=== PATIENT | male | born 1945 | race African-American/Black ===

== ENCOUNTER 2016-12-27 20:21 | Inpatient (IN) | payer MEDICARE ==
[~2016-12-27] VITALS: Ht 177.8 cm; Wt 105.7 kg
--- NOTE | 2016-12-27 20:23 | NUR ---
PT [facility] FROM [facility] TO ER BED 10. PER REPORT, PT WAS NOTED TO BE SHORT OF BREATH, TACHYPNEIC. PT OSKAR SOB TUNNEL MINER. GOWNED AND PLACED ON MONITOR. SATTING 94% ON RA. PLACED ON O2@2L. STABLE VITALS. AWAITING MD DONIS.
--- NOTE | 2016-12-27 20:25 | NUR ---
DR BOX AT BEDSIDE FOR EVAL.
--- NOTE | 2016-12-27 20:43 | NUR ---
IV LINE STARTED BLOOD DRAWN AND SENT TO LAB.
--- NOTE | 2016-12-27 20:53 | NUR ---
RADIOLOGY AT BEDSIDE FOR CHEST XRAY.
[2016-12-27 20:56] LABS: BASOPHILS # (AUTO) 0.3 /CMM (0.0-0.2); BASOPHILS % (AUTO) 3.5 % (0.0-2.0); EOSINOPHILS # (AUTO) 0.4 /CMM (0.0-0.7); EOSINOPHILS % (AUTO) 4.5 % (0.0-6.0); HEMATOCRIT 39 % (39-51); HEMOGLOBIN 12.9 g/dL (13.5-17.5); LYMPHOCYTES % (AUTO) 24.4 % (20.0-44.0); MEAN CORPUSCULAR HEMOGLOBIN 30 PG (26.0-33.0); MEAN CORPUSCULAR HGB CONC 33 g/dl (31.0-36.0); MEAN CORPUSCULAR VOLUME 92 fL (80-96); MONOCYTES # (AUTO) 0.5 /CMM (0.1-1.30); MONOCYTES % (AUTO) 6.5 % (2.0-12.0); NEUTROPHILS % (AUTO) 61.1 % (43.0-81.0); PLATELET COUNT (AUTO) 197 /CMM (150-450); RDW COEFFICIENT OF VARIATION 13.4 (11.5-15.0); WHITE BLOOD COUNT (AUTO) 8.2 K/uL (4.3-11.0)
[2016-12-27 21:00] LABS: CARBON DIOXIDE 29 mmol/L (21-32); CHLORIDE 107 mmol/L (98-107); CREATININE 1.4 mg/dL (0.6-1.3); GLUCOSE 188 mg/dL (74-106); POTASSIUM 4.3 mmol/L (3.5-5.1); SODIUM SERUM 141 mmol/L (136-145); UREA NITROGEN, BLOOD 23 mg/dL (7-18)
[2016-12-27 21:06] LABS: PROTHROMBIN TIME 10.4 SECS (9.5-12.7)
[2016-12-27 21:08] LABS: TROPONIN I 0.031 ng/mL (0.00-0.056)
[2016-12-27 21:11] LABS: ALANINE AMINOTRANSFERASE 24 U/L (12-78); ALBUMIN 3.1 g/dL (3.4-5.0); ALKALINE PHOSPHATASE 131 U/L (46-116); ASPARTATE AMINOTRANSFERASE 16 U/L (15-37); BILIRUBIN,DIRECT 0.1 mg/dL (0.0-0.2); BILIRUBIN,TOTAL 0.3 mg/dL (0.2-1.0); TOTAL PROTEIN, SERUM 7.3 g/dL (6.4-8.2)
[2016-12-27] MEDS ORDERED: PIPERACILLIN /TAZOBACTAM 3.375 G in IV D5W 50 ML IV ONE (21:30)
[2016-12-27] MEDS ORDERED: AZITHROMYCIN 500 MG in IV D5W 250 ML IV ONE (21:30)
[2016-12-27] MEDS ORDERED: AZITHROMYCIN 500 MG VIAL ONE (21:32)
[2016-12-27] MEDS ORDERED: PIPERACILLIN /TAZOBACTAM 3.375 G VIAL IV ONE (21:32)
--- NOTE | 2016-12-27 22:39 | NUR ---
REPORT GIVEN TO PATRICIA. PT AWAITING TRANFER TO FLOOR.
--- NOTE | 2016-12-27 22:46 | NUR ---
REPORT RECEIVED FROM ER NURSE
[2016-12-27 23:00] VITALS: BP 119/79
[2016-12-27] MEDS ORDERED: MAGNESIUM HYDROXIDE 30 ML UDC PO PRN (23:00)
[2016-12-27] MEDS ORDERED: HYDROCODONE/APAP 5/325MG 1 EACH TABLET PO PRN (23:00)
[2016-12-27] MEDS ORDERED: Z GUARD REMEDY 2 OZ OINT TP PRN (23:00)
[2016-12-27] MEDS ORDERED: ACETAMINOPHEN 325 MG TABLET PO PRN (23:00)
[2016-12-27] MEDS ORDERED: ONDANSETRON HCL/PF 4 MG/2 ML VIAL IVP PRN (23:00)
[2016-12-27] MEDS ORDERED: MAG HYDROX/AL HYDROX/SIMETH 30 ML UDC PO PRN (23:00)
--- NOTE | 2016-12-27 23:00 | NUR ---
CERTIFIED REGISTERED DENTAL ASSISTANT INITIAL NOTES RECEIVED PATIENT VIA LES AWAKE A/OX2, DAUGHTER AT BEDSIDE. PATIENT DENIES PAIN OR DISCOMFORT. PATIENT DENIES SOB, ON 2LPMO2 VIA NC SPO2 96%. ON TELE MONITOR SR 84. WITH LW 18G PATENT AND INTACT, ZITHROMAX RUNNING. ORIENTED PATIENT TO ROOM AND CALL LIGHT SYSTEM PATIENT VERBALIZED UNDERSTANDING. SKIN ASSESSMENT DONE. PER DAUGHTER PATIENT NEEDS ONE ON ONE SUPERVISION WHEN EATING, PATIENT ON THICKENED LIQUIDS, AND ASPIRATION PRECAUTIONS. HOB ELEVATED. SIDE RAILS UP AND LOCKED. BED KEPT AT LOWEST POSITION. CALL LIGHT KEPT WITHIN EASY REACH. WILL CONTINUE TO MONITOR.
--- NOTE | 2016-12-27 23:28 | NUR ---
CLARIFIED ABG ORDERS WITH GARCIA, PATIENT IN NO RESPIRATORY DISTRESS, SPO2 96% ON 2LPM. RELAYED D-DIMER RESULT, WITH ORDERS FOR STAT NM PULMONARY PERFUSION WITH VENT. WILL GET CONSENT FROM DAUGHTER.
[2016-12-27 23:55] LABS: ABG BASE EXCESS -1.9 mmol/L; ABG OXYGEN SATURATION 95.8 % (92.0-98.5); ABG PCO2 39.7 mmHg (35.0-45.0); ABG PO2 87.2 mmHg (75.0-100.0); AaDO2 65.6 mmHg; COHb 0.4 % (0.5-1.5); MetHb 0.4 % (0.0-1.5); SITE, ABG Right Radial; VENT MODE, BG Nasal Cannula
[2016-12-28] VITALS: BP 119/79
[2016-12-28] MEDS ORDERED: CRAN3875 PO (00:27)
[2016-12-28] MEDS ORDERED: ASPI325T2 PO (00:27)
[2016-12-28] MEDS ORDERED: ERGO400T7 PO (00:27)
[2016-12-28] MEDS ORDERED: INSU3INS6 SUBCUT (00:27)
[2016-12-28] MEDS ORDERED: ATOR20TA PO (00:27)
[2016-12-28] MEDS ORDERED: SENN8.6T6 PO (00:27)
[2016-12-28] MEDS ORDERED: BRIM5DRO3 EACHEYE (00:27)
[2016-12-28] MEDS ORDERED: MULT-1119 PO (00:27)
[2016-12-28] MEDS ORDERED: MAGN400O6 PO (00:27)
[2016-12-28] MEDS ORDERED: BISA10SU61 RC (00:27)
[2016-12-28] MEDS ORDERED: DOCU-170 PO (00:27)
[2016-12-28] MEDS ORDERED: AMAN100T PO (00:27)
[2016-12-28] MEDS ORDERED: NA P133E RC (00:27)
[2016-12-28] MEDS ORDERED: ACET-73 PO (00:27)
[2016-12-28] MEDS ORDERED: DONE5TAB34 PO (00:27)
[2016-12-28] MEDS ORDERED: INSU100V11 SQ (00:27)
[2016-12-28] MEDS ORDERED: ACET-868 PO (00:27)
[2016-12-28] MEDS ORDERED: GLUC1KIT IM (00:27)
[2016-12-28] MEDS ORDERED: VENL75TA4 PO (00:27)
[2016-12-28] MEDS ORDERED: LISI-603 PO (00:27)
--- NOTE | 2016-12-28 01:25 | NUR ---
patient left for NM for VQ scan
[2016-12-28] MEDS ORDERED: BISACODYL SUPP (10 MG) 10 MG/SUPP.RECT SUPP.RECT RC SCH (02:00)
[2016-12-28] MEDS ORDERED: DEXTROSE 50%-WATER 50 ML DISP.SYRIN IV PRN (02:00)
[2016-12-28] MEDS ORDERED: NA PHOS,M-B/NA PHOS,DI-BA 1 EA ENEMA RC SCH (02:00)
--- NOTE | 2016-12-28 02:44 | NUR ---
PATIENT RETURNED FROM [place] SCAN
[2016-12-28 03:04] VITALS: BP 152/85
--- NOTE | 2016-12-28 03:49 | NUR ---
CALLED RADIOLOGY TO F/U ON VQ SCAN RESULT. PER TECH, WILL BE READ SOON
[2016-12-28 04:00] VITALS: BP 150/82
--- NOTE | 2016-12-28 04:16 | NUR ---
FINANCIAL OPERATIONS CLERK NOTES RELAYED STAT NM PULMONARY PERFUSION WITH VENT RESULTS AND ABG RESULTS WITH NO NEW ORDERS. HE WILL PLACE DVT PPX ORDER FOR THE PATIENT
[2016-12-28] MEDS ORDERED: HEPARIN SODIUM, PORCINE 5000 UNITS/1 ML VIAL SQ SCH (04:30)
[2016-12-28] MEDS ORDERED: HEPARIN SODIUM, PORCINE 5000 UNITS/1 ML VIAL ONE (04:37)
--- NOTE | 2016-12-28 07:27 | NUR ---
RN NOTES RECEIVED PT FROM THRESHING MACHINE OPERATOR IN STABLE CONDITION, ON 2L NC NO SOB OR DISTRESS NOTED AT THIS TIME. SR ON THE TELE MONITOR HR 76. LW 18 GAUGE IV SITE DRY AND INTACT. BED LOCKED AND IN LOWEST POSITION, CALL LIGHT WITHIN REACH, WILL CONT TO MONITOR.
--- NOTE | 2016-12-28 07:31 | NUR ---
SLITTER CUT OFF OPERATOR CLOSING NOTES NO SIGNIFICANT CHANGES OVERNIGHT. ALL NEEDS ANTICIPATED AND MET. NO SOB. SPO2 95% ON [id number]. HOB KEPT ELEVATED. KEPT CLEAN AND DRY . TURNED AND REPOSITIONED Q2 AND PRN. SIDE RAILS UP AND LOCKED. ASPIRATION PRECAUTIONS OBSERVED. BED KEPT AT LOWEST POSITION. CALL LIGHT KEPT WITHIN EASY REACH. CONTINUITY OF CARE ENDORSED TO AM NURSE.
[2016-12-28 07:37] LABS: BASOPHILS % (AUTO) 0.5 % (0.0-2.0); EOSINOPHILS # (AUTO) 0.4 /CMM (0.0-0.7); EOSINOPHILS % (AUTO) 4.9 % (0.0-6.0); HEMATOCRIT 39 % (39-51); HEMOGLOBIN 12.6 g/dL (13.5-17.5); LYMPHOCYTES # (AUTO) 2.1 /CMM (0.8-4.8); MEAN CORPUSCULAR HEMOGLOBIN 30 PG (26.0-33.0); MEAN CORPUSCULAR HGB CONC 33 g/dl (31.0-36.0); MEAN CORPUSCULAR VOLUME 92 fL (80-96); MONOCYTES # (AUTO) 0.4 /CMM (0.1-1.30); MONOCYTES % (AUTO) 6.1 % (2.0-12.0); NEUTROPHILS # (AUTO) 4.3 /CMM (1.8-8.9); NEUTROPHILS % (AUTO) 59.5 % (43.0-81.0); PLATELET COUNT (AUTO) 187 /CMM (150-450); RDW COEFFICIENT OF VARIATION 14.5 (11.5-15.0); RED BLOOD CELL COUNT(AUTO) 4.22 MIL/uL (4.5-6.0); WHITE BLOOD COUNT (AUTO) 7.3 K/uL (4.3-11.0)
[2016-12-28 07:50] LABS: CALCIUM, SERUM 8.6 mg/dL (8.5-10.1); CARBON DIOXIDE 25 mmol/L (21-32); CHLORIDE 108 mmol/L (98-107); CREATININE 1.2 mg/dL (0.6-1.3); GLUCOSE 212 mg/dL (74-106); PHOSPHORUS 3.7 mg/dL (2.5-4.9); POTASSIUM 4.1 mmol/L (3.5-5.1); SODIUM SERUM 142 mmol/L (136-145); UREA NITROGEN, BLOOD 23 mg/dL (7-18)
[2016-12-28 07:58] LABS: TROPONIN I 0.027 ng/mL (0.00-0.056)
[2016-12-28 08:00] VITALS: BP 145/84
[2016-12-28] MEDS: DONEPEZIL 5 MG TABLET PO SCH (08:35)
[2016-12-28] MEDS: LISINOPRIL (20MG) 20 MG TABLET PO SCH (08:35)
[2016-12-28] MEDS: SENNOSIDES 8.6 MG TABLET PO SCH (08:35)
[2016-12-28] MEDS: BLOOD SUGAR DIAGNOSTIC 1 EACH STRIP IN SCH ×4 (08:35→22:43)
[2016-12-28] MEDS: DOCUSATE SODIUM 100 MG CAPSULE PO SCH (08:36)
[2016-12-28] MEDS: ASPIRIN 325 MG TABLET PO SCH (08:36)
[2016-12-28] MEDS: MULTIVIT, IRON, MIN NO. 8, FA 1 TAB PO SCH (08:36)
[2016-12-28 08:42] LABS: APPEARANCE,URINE CLEAR (CLEAR); BILIRUBIN,URINE NEGATIVE (NEGATIVE); BLOOD, URINE TRACE-INTA Ery/uL (NEGATIVE); COLOR,URINE YELLOW (YELLOW); KETONES,URINE NEGATIVE (NEGATIVE); LEUKOCYTE ESTERASE ,URINE NEGATIVE (NEGATIVE); NITRITE, URINE NEGATIVE (NEGATIVE); PROTEIN,URINE 2+ mg/dl (NEGATIVE); UGLUCOSE NEGATIVE (NEGATIVE); UROBILINOGEN,URINE 0.2 EU/dL (0.2)
[2016-12-28 08:48] LABS: BACTERIA,URINE None seen /HPF (None Seen); RBC,URINE 0-2 /HPF (0-2); SQUAMOUS EPITHELIAL CELL,UR 0-2 /HPF (None Seen); WBC,URINE 0-2 /HPF (0-3)
[2016-12-28] MEDS ORDERED: Medication Not On Formulary EA (Cran/Vitc/Mannose/Inulin/Brom (Uti-Stat Liquid) 3,875 MG PO SCH (09:00)
[2016-12-28] MEDS: BRIMONIDINE TARTRATE OPHT SOLN 5 ML BOTTLE OP SCH ×2 (09:16→22:34)
[2016-12-28] MEDS: AMANTADINE SUSP 50 MG/5 ML UDC PO SCH ×2 (09:16→16:25)
[2016-12-28] MEDS: INSULIN DETEMIR 100 UNIT/ML CARTRIDGE SQ SCH ×2 (09:18→22:41)
[2016-12-28] MEDS: INSULIN REGULAR, HUMAN 100 UNIT/ML 3 ML VIAL SQ PRN ×4 (09:20→22:48)
--- NOTE | 2016-12-28 10:02 | NUR ---
RN NOTES PER PHARMACY HERPARIN WAS GIVEN AT 5AM BUT REMAINED PINK ON EMAR. PER PHARMACY, WRITE "NOT ADMINISTERED" EVEN THOUGH IT WAS GIVEN BY ART SALES CONSULTANT.
[2016-12-28 10:49] LABS: CHOLESTEROL 111 mg/dL (<200); HDL CHOLESTEROL 46 mg/dL (40-60); LDL 46 mg/dL (0-99); THYROID STIMULATING HORMONE 2.252 uIU/mL (0.358-3.74); TRIGLYCERIDES 110 mg/dL (30-150)
--- NOTE | 2016-12-28 11:56 | NUR ---
RN NOTES CLOT SEEN IN THE L LEG FROM DOPPLER, DR CASTILLO AWARE. LOVENOX ORDERED.
[2016-12-28 16:00] VITALS: BP 135/76
[2016-12-28] MEDS ORDERED: ERGOCALCIFEROL (VITAMIN D 2) 50,000 UNIT CAPSULE PO SCH (17:30)
--- NOTE | 2016-12-28 18:16 | NUR ---
RN NOTES PT RESTING IN BED NO SOB OR DISTRESS NOTED AT THIS TIME. TELEPHONE CONSENT RECEIVED FROM DAUGHTER MIHIR WITH DR TOBIAS FOR THORACENTESIS TOMORROW AM. ALL NEEDS MET, NO SIGNIFICANT CHANGES THROUGHOUT THE SHIFT, REMAINED IN STABLE CONDITION. BED LOCKED AND IN LOWEST POSITION, CALL LIGHT WITHIN REACH, SIDE RAILS UPX3, WILL ENDORSE TO ONCOMING SHIFT.
[2016-12-28] MEDS ORDERED: ENOXAPARIN SODIUM 60 MG/0.6 ML DISP.SYRIN SQ ONE (18:30)
[2016-12-28 20:00] VITALS: BP 130/76
--- NOTE | 2016-12-28 20:00 | NUR ---
RN INITIAL NOTES; PT ON THE BED WITHOUT ANY DISTRESS, PT IS ALERT/ORIENTED X 2 ,CONFUSE . BREATHING EVEN AND UNLABORED ON 2 LPM VIA NC, LW 18 G PERIPHERAL IV INTACT AND PATENT . INCONTINENT TO BOWEL/BLADDER . BED IN THE LOWEST/LOCKED POSITION . SAFETY MEASURES APPLIED . WILL TURN AND REPOSITION Q2H AND NEEDED. PT WILL BE NPO POST MIDNIGHT FOR THORACENTESIS TOMORROW. WILL CONTINUE TO MONITOR .
[2016-12-28] MEDS ORDERED: ENOXAPARIN SODIUM 60 MG/0.6 ML DISP.SYRIN SQ SCH (21:00)
[2016-12-28] MEDS: HEPARIN SODIUM, PORCINE 5000 UNITS/1 ML VIAL SQ SCH (21:00)
[2016-12-28] MEDS: ATORVASTATIN 10 MG TABLET PO SCH (22:33)
--- NOTE | 2016-12-28 22:36 | NUR ---
RN NOTE; NON ADMIN HEPARIN; PT IS SCHEDULED FOR THORACENTESIS TOMORROW , HEPARIN 5000 UNITS SQ HELD AT THIS TIME . AIYANA ARAYA MADE AWARE . WILL CONTINUE TO MONITOR.
--- NOTE | 2016-12-28 22:49 | NUR ---
RN NOTE; REGULAR INSULIN HELD FOR BS 250 MG/DL DUE TO NPO STATUS POST MIDNIGHT .
[2016-12-29 04:00] VITALS: BP 148/87
--- NOTE | 2016-12-29 06:48 | NUR ---
RN EOS NOTE; PT REMAINED STABLE DURING THE SHIFT, NO ANY DISTRESS NOTED. G TUBE FEEDING TOLERATED WELL. TURNED AND REPOSITIONED Q2H AND NEEDED . TOTAL CARE RENDERED . ON NPO STATUS FOR PROCEDURE THORACENTESIS . WILL ENDORSE TO NEXT SHIFT RN FOR CONTINUITY OF CARE. Addendum: 12/29/16 at 0649 by WILL PELAEZ RN PLS AVOID THIS NOTE, WAS FOR DIFFERENT PATIENT.
--- NOTE | 2016-12-29 06:49 | NUR ---
RN EOS NOTE; PT REMAINED STABLE DURING THE SHIFT, NO ANY DISTRESS NOTED. TURNED AND REPOSITIONED Q2H AND NEEDED . TOTAL CARE RENDERED . ON NPO STATUS FOR PROCEDURE THORACENTESIS . WILL ENDORSE TO NEXT SHIFT RN FOR CONTINUITY OF CARE.
--- NOTE | 2016-12-29 07:23 | NUR ---
RN NOTES RECEIVED PT FROM FORGE PRESS OPERATOR IN STABLE CONDITION, RESTING IN BED. A&OX2, ON 2L NC, NO SOB OR DISTRESS NOTED. LW 18G IV SITE DRY AND INTACT NO IVF RUNNING AT THIS TIME. BED LOCKED AND IN LOWEST POSITION, CALL LIGHT WITHIN REACH, SIDE RAILS UPX3, WILL CONT TO MONITOR.
[2016-12-29] MEDS: BLOOD SUGAR DIAGNOSTIC 1 EACH STRIP IN SCH ×4 (07:30→22:28)
[2016-12-29 08:00] VITALS: BP 147/82
[2016-12-29] MEDS: HEPARIN SODIUM, PORCINE 5000 UNITS/1 ML VIAL SQ SCH (09:00)
--- NOTE | 2016-12-29 09:19 | NUR ---
RN NOTES AM MEDS AND INSULIN HELD DUE TO THORACENTESIS TO BE DONE. HEPARIN HELD. WILL CONFIRM WITH RADIOLOGIST IF PT NEEDS TO BE NPO.
--- NOTE | 2016-12-29 10:15 | NUR ---
RN NOTES PER RADIOLOGIST PT DOES NOT NEED TO BE NPO. AM MEDS WILL BE GIVEN AFTER PT RETURNS FROM CT SCAN.
[2016-12-29] MEDS: BRIMONIDINE TARTRATE OPHT SOLN 5 ML BOTTLE OP SCH ×2 (10:43→21:00)
[2016-12-29] MEDS: SENNOSIDES 8.6 MG TABLET PO SCH (10:44)
[2016-12-29] MEDS: ASPIRIN 325 MG TABLET PO SCH (10:44)
[2016-12-29] MEDS: DOCUSATE SODIUM 100 MG CAPSULE PO SCH (10:45)
[2016-12-29] MEDS: MULTIVIT, IRON, MIN NO. 8, FA 1 TAB PO SCH (10:45)
[2016-12-29] MEDS: LISINOPRIL (20MG) 20 MG TABLET PO SCH (10:45)
[2016-12-29] MEDS: DONEPEZIL 5 MG TABLET PO SCH (10:45)
[2016-12-29] MEDS: AMANTADINE SUSP 50 MG/5 ML UDC PO SCH ×2 (10:48→16:47)
[2016-12-29] MEDS: VENLAFAXINE 25 MG TABLET PO SCH (10:48)
[2016-12-29] MEDS: INSULIN DETEMIR 100 UNIT/ML CARTRIDGE SQ SCH ×2 (10:49→22:22)
[2016-12-29] MEDS: INSULIN REGULAR, HUMAN 100 UNIT/ML 3 ML VIAL SQ PRN ×4 (10:51→22:23)
--- NOTE | 2016-12-29 11:46 | NUR ---
RN NOTES THORACENTESIS NOT DONE. PER RADIOLOGIST, NOT ENOUGH FLUID IN THE LUNG,
[2016-12-29 12:00] LABS: BASOPHILS % (AUTO) 0.4 % (0.0-2.0); EOSINOPHILS # (AUTO) 0.3 /CMM (0.0-0.7); EOSINOPHILS % (AUTO) 4.7 % (0.0-6.0); HEMATOCRIT 41 % (39-51); HEMOGLOBIN 13.3 g/dL (13.5-17.5); LYMPHOCYTES % (AUTO) 27.3 % (20.0-44.0); MEAN CORPUSCULAR HEMOGLOBIN 30 PG (26.0-33.0); MEAN CORPUSCULAR HGB CONC 33 g/dl (31.0-36.0); MEAN CORPUSCULAR VOLUME 92 fL (80-96); MONOCYTES # (AUTO) 0.5 /CMM (0.1-1.30); MONOCYTES % (AUTO) 7.3 % (2.0-12.0); NEUTROPHILS # (AUTO) 4.3 /CMM (1.8-8.9); NEUTROPHILS % (AUTO) 60.3 % (43.0-81.0); PLATELET COUNT (AUTO) 201 /CMM (150-450); RDW COEFFICIENT OF VARIATION 14.3 (11.5-15.0); RED BLOOD CELL COUNT(AUTO) 4.41 MIL/uL (4.5-6.0); WHITE BLOOD COUNT (AUTO) 7.2 K/uL (4.3-11.0)
[2016-12-29 12:29] LABS: IRON, SERUM 47 ug/dl (50-175); TOTAL IRON BINDING CAPACITY 236 ug/dl (250-450)
[2016-12-29 12:30] LABS: CALCIUM, SERUM 9.2 mg/dL (8.5-10.1); CARBON DIOXIDE 32 mmol/L (21-32); CHLORIDE 107 mmol/L (98-107); CREATININE 1.1 mg/dL (0.6-1.3); GLUCOSE 297 mg/dL (74-106); MAGNESIUM 1.8 mg/dL (1.8-2.4); PHOSPHORUS 3.3 mg/dL (2.5-4.9); POTASSIUM 4.2 mmol/L (3.5-5.1); SODIUM SERUM 144 mmol/L (136-145); UREA NITROGEN, BLOOD 22 mg/dL (7-18)
[2016-12-29 13:09] LABS: INR 1.02 (0.87-1.13); PROTHROMBIN TIME 10.6 SECS (9.5-12.7)
[2016-12-29 13:29] LABS: FERRITIN 175 ng/mL (8-388); FREE PSA 0.44 ng/mL (0.00-45); PROSTATE SPECIFIC ANTIGEN SCR 4.01 ng/mL (0.00-4.00)
[2016-12-29 16:00] VITALS: BP 148/77
--- NOTE | 2016-12-29 18:18 | NUR ---
RN NOTES PT RESTING IN BED WITH DAUGHTER AT BEDSIDE. ON NC NO SOB OR DISTRESS NOTED. NO SIGNIFICANT CHANGES THROUGHOUT THE SHIFT.ALL NEEDS MET, KEPT COMFORTABLE. PT REMOVED IV, NEW IV SITE STARTED L FA 22 GAUGE. BED LOCKED AND IN LOWEST POSITION, SIDE RAILS UPX3, WILL ENDORSE TO ONCOMING SHIFT.
[2016-12-29 20:00] VITALS: BP 153/86
--- NOTE | 2016-12-29 20:00 | NUR ---
MS RN NOTES RECEIVED PTS ON BED AWAKE AND RESPONSIVE, ALERT X2 WITH CONFUSION, V/S STABLE AFEBRILE, NO SOB NO DISTRESS , ON 02 AT 2LITERS VIA NC SATING 98% , HOB ELEVATED AT ALL TIMES FOR ASPIRATION PRECAUTION .WITH LEFT FA G#22 INTACT AND PATENT, ALL NEEDS ATTENDED TOO CALL LIGHT WITHIN REACH , ALL DUE MEDS GIVEN ORDERED, NO SIGNIFICANT CHANGE NOTED , TURNED AND REPOSITION Q2 HRS AND PRN , SAFETY PRECAUTION AT ALL TIMES .KEPT PTS CLEAN DRY AND COMFORTABLE , WILL CONTINUE TO MONITOR PTS.
--- NOTE | 2016-12-29 21:30 | NUR ---
MS RN NOTES BRIMONIDINE OP DROPS NOT GIVEN D/T NON AVAILABILITY.
--- NOTE | 2016-12-29 22:00 | NUR ---
MS RN NOTES SPOKE TO JO ANN VARMA DESIGN QUALITY ENGINEER RE PTS ON HEPARIN AND LOVENOX ORDER , WITH ORDER MADE AND CARRIED OUT , D/C HEPARIN .BLOOD SUGAR AT 10PM IS 252G/DL=LEVEMIR 55UNITS GIVEN SQ INJ. AND 6 UNITS OF REGULAR INSULIN GIVEN PER SLIDING SCALE. PTS ON PO DIET ,WILL CONTINUE TO MONITOR PTS, WILL CHECK BLOOD SUGAR AGAIN IN AM.
[2016-12-29] MEDS: ENOXAPARIN SODIUM 60 MG/0.6 ML DISP.SYRIN SQ SCH (22:22)
[2016-12-29] MEDS: ATORVASTATIN 10 MG TABLET PO SCH (22:26)
--- NOTE | 2016-12-30 01:59 | NUR ---
MS RN NOTES PTS ON BED ASLEEP COMFORTABLY.
[2016-12-30 04:00] VITALS: BP 155/79
[2016-12-30 07:02] LABS: BASOPHILS % (AUTO) 0.6 % (0.0-2.0); EOSINOPHILS # (AUTO) 0.3 /CMM (0.0-0.7); EOSINOPHILS % (AUTO) 5.4 % (0.0-6.0); HEMATOCRIT 39 % (39-51); HEMOGLOBIN 12.9 g/dL (13.5-17.5); LYMPHOCYTES # (AUTO) 1.9 /CMM (0.8-4.8); MEAN CORPUSCULAR HEMOGLOBIN 30 PG (26.0-33.0); MEAN CORPUSCULAR HGB CONC 33 g/dl (31.0-36.0); MEAN CORPUSCULAR VOLUME 91 fL (80-96); MONOCYTES # (AUTO) 0.3 /CMM (0.1-1.30); MONOCYTES % (AUTO) 5.4 % (2.0-12.0); NEUTROPHILS # (AUTO) 3.5 /CMM (1.8-8.9); NEUTROPHILS % (AUTO) 57.6 % (43.0-81.0); PLATELET COUNT (AUTO) 172 /CMM (150-450); RED BLOOD CELL COUNT(AUTO) 4.23 MIL/uL (4.5-6.0)
[2016-12-30 07:20] LABS: CARBON DIOXIDE 29 mmol/L (21-32); CHLORIDE 109 mmol/L (98-107); CREATININE 0.9 mg/dL (0.6-1.3); GLUCOSE 142 mg/dL (74-106); MAGNESIUM 1.8 mg/dL (1.8-2.4); PHOSPHORUS 3.5 mg/dL (2.5-4.9); POTASSIUM 4.2 mmol/L (3.5-5.1); SODIUM SERUM 143 mmol/L (136-145); UREA NITROGEN, BLOOD 23 mg/dL (7-18)
--- NOTE | 2016-12-30 07:30 | NUR ---
MS RN NOTES PTS ON BED AWAKE AND RESPONSIVE NO SOB NO DISTRESS NOTED , V/S STABLE AFEBRILE , ENDORSE TO RN DAY SHIFT FOR CONTINUITY OF CARE.
[2016-12-30 08:00] VITALS: BP 159/83
--- NOTE | 2016-12-30 08:00 | NUR ---
MS RN NOTES RECEIVED PTS ON BED AWAKE AND RESPONSIVE, ALERT X2 WITH CONFUSION, V/S STABLE AFEBRILE, NO SOB NO DISTRESS , ON 02 AT 2LITERS VIA NC SATING 97% , HOB ELEVATED AT ALL TIMES FOR ASPIRATION PRECAUTION .WITH LEFT FA G#22 INTACT AND PATENT, ALL NEEDS ATTENDED TOO CALL LIGHT WITHIN REACH , ALL DUE MEDS GIVEN ORDERED, NO SIGNIFICANT CHANGE NOTED , TURNED AND REPOSITION Q2 HOURS AND PRN , SAFETY PRECAUTION AT ALL TIMES .KEPT PTS CLEAN DRY AND COMFORTABLE , WILL CONTINUE TO MONITOR PTS.BED IN LOWEST AND LOCKED POSITION ,PLAN OF CARE DISCUSSED WITH PATIENT
[2016-12-30] MEDS: SENNOSIDES 8.6 MG TABLET PO SCH (08:10)
[2016-12-30] MEDS: DOCUSATE SODIUM 100 MG CAPSULE PO SCH (08:11)
[2016-12-30] MEDS: ASPIRIN 325 MG TABLET PO SCH (08:12)
[2016-12-30] MEDS: LISINOPRIL (20MG) 20 MG TABLET PO SCH (08:12)
[2016-12-30] MEDS: AMANTADINE SUSP 50 MG/5 ML UDC PO SCH ×2 (08:13→16:29)
[2016-12-30] MEDS: VENLAFAXINE 25 MG TABLET PO SCH (08:13)
[2016-12-30 08:14] LABS: *SPE A/G RATIO 0.9 (0.7-1.7); *SPE ALBUMIN 3.2 g/dL (2.9-4.4); *SPE ALPHA-1-GLOBULIN 0.2 g/dL (0.0-0.4); *SPE ALPHA-2-GLOBULIN 1.1 g/dL (0.4-1.0); *SPE BETA GLOBULIN 0.9 g/dL (0.7-1.3); *SPE GLOBULIN, TOTAL 3.5 g/dL (2.2-3.9); *SPE M-SPIKE Not Observed g/dL (Not Observed); *SPE PROTEIN TOTAL 6.7 g/dL (6.0-8.5); *SPEGAMMA GLOBULIN 1.3 g/dL (0.4-1.8)
[2016-12-30] MEDS: DONEPEZIL 5 MG TABLET PO SCH (08:14)
[2016-12-30] MEDS: MULTIVIT, IRON, MIN NO. 8, FA 1 TAB PO SCH (08:14)
[2016-12-30] MEDS: INSULIN DETEMIR 100 UNIT/ML CARTRIDGE SQ SCH ×2 (08:16→21:53)
[2016-12-30] MEDS: ENOXAPARIN SODIUM 60 MG/0.6 ML DISP.SYRIN SQ SCH ×2 (08:16→21:56)
[2016-12-30] MEDS: BLOOD SUGAR DIAGNOSTIC 1 EACH STRIP IN SCH ×5 (08:21→23:57)
[2016-12-30] MEDS: BRIMONIDINE TARTRATE OPHT SOLN 5 ML BOTTLE OP SCH ×2 (08:24→21:45)
[2016-12-30 09:20] LABS: IMMUNOGLOBULIN A, SERUM 309 mg/dL (61-437); IMMUNOGLOBULIN G, SERUM 1283 mg/dL (700-1600); IMMUNOGLOBULIN M, SERUM 29 mg/dL (15-143)
--- NOTE | 2016-12-30 12:16 | NUR ---
MS RN NOTE SEEN BY DR CASTILLO NOTIFIED THAT IS SWEATING ,NEW ORDER WITH LABS GIVEN Addendum: 12/30/16 at 1454 by PRINCESS HENRY RN DR OCHOA AT BEDSIDE
[2016-12-30] MEDS: INSULIN REGULAR, HUMAN 100 UNIT/ML 3 ML VIAL SQ PRN ×3 (12:38→21:56)
--- NOTE | 2016-12-30 15:00 | NUR ---
MS SERVICE AGENT KEEP CLEAN DRY ,TURN REPOSITION ,CALL LIGHT WITHIN REACH
[2016-12-30 16:00] VITALS: BP 160/88
--- NOTE | 2016-12-30 17:00 | NUR ---
MS RN NOTE SEEN Y ONCOLOGIST DR TOBIAS WITH ORDER CT CHEST ANGIO WILL , SPOKE WITH DAUGHTER OSCAR TELEPHONE CONSENT OBTAINED
--- NOTE | 2016-12-30 18:03 | NUR ---
MS RN NOTE FAMILY AT BEDSIDE ,ALL NEEDS ATTENDED ,WILL CONT TO MONITOR CLOSELY
--- NOTE | 2016-12-30 18:43 | NUR ---
MS RN NOTE HAVING DINNER , ABLE TO EAT SELF, NOT IN ACUTE DISTRESS, NO SOB NOTED , WILL CONT TO MONITOR ACCORDANTLY
--- NOTE | 2016-12-30 19:30 | NUR ---
MS RN INITIAL NOTE RECEIVED PT IN BED. A/O X2 AND ABLE TO VERBALIZE NEEDS. ON 2L OF O2 VIA NASAL CANNULA AND SATURATING 98%. BREATHING EVEN, REGULAR AND UNLABORED. IV LFA CLEAN, DRY, INTACT AND FLUSHING WELL. BED IN LOWEST POSITION AND LOCKED IN PLACE. CALL LIGHT WITHIN EASY REACH AT ALL TIMES. WILL CONTINUE TO MONITOR.
[2016-12-30 20:00] VITALS: BP 151/89
[2016-12-30] MEDS: ATORVASTATIN 10 MG TABLET PO SCH (21:16)
--- NOTE | 2016-12-30 22:45 | NUR ---
MS RN NOTE SPOKE WITH CHEESE PROCESSOR JO ANN BRONSON FOR PT BLOOD SUGAR OF 425, RECHECKED 476 AND GAVE 10 UNITS OF REGULAR INSULIN AND 55 UNITS OF LEVEMIR. WITH NEW ORDER TO CHANGE MILD SLIDING SCALE TO AGGRESSIVE SLIDING SCALE AND CONTINUE TO MONITOR THE PT. WILL RECHECK BLOOD SUGAR.
[2016-12-30] MEDS ORDERED: *INSULIN REGULAR(HUMULIN R)HUM 100 UNIT/ML VIAL SQ PRN (23:00)
[2016-12-30] MEDS ORDERED: DEXTROSE 50%-WATER 50 ML DISP.SYRIN IV PRN (23:00)
[2016-12-31] MEDS ORDERED: INSULIN REGULAR, HUMAN 100 UNIT/ML 3 ML VIAL IV ONE (00:30)
--- NOTE | 2016-12-31 00:49 | NUR ---
MS RN NOTE SPOKE WITH JO ANN BRONSON ABOUT PT BLOOD SUGAR 457 WITH NEW ORDER FOR REGULAR INSULIN 1O UNITS IVP X1 NOW. WILL RECHECK AND CONTINUE TO MONITOR.
[2016-12-31 04:00] VITALS: BP 134/78
--- NOTE | 2016-12-31 06:52 | NUR ---
MS RN CLOSING NOTE PT REMAINED STABLE DURING SHIFT. BLOOD SUGAR RECHECKED AND NOTED DECREASE WITH SECOND DOSE OF INSULIN. NO S/SX OF HYPERGLYCEMIA NOTED. NO ACUTE DISTRESS NOTED. KEPT CLEAN AND DRY. REPOSITIONED Q2H. ALL NEEDS ATTENDED TO PROMPTLY. CALL LIGHT WITHIN REACH AT ALL TIMES. WILL ENDORSE TO NEXT SHIFT FOR CONTINUITY OF CARE.
--- NOTE | 2016-12-31 07:30 | NUR ---
MS RN OPENING RECEIVED PATIENT A/OX3 DENIES SOB, DIFFICULTY BREATHING OR PAIN AT THIS TIME. PATIENT UNDERSTANDING OF NPO STATUS FOR CT ANGIO TODAY AND ALL CONSENTS SIGNED. CONFIRMED WITH RADIOLOGY ([facility]) PATIENT WILL HAVE ANGIO AROUND 830 AM. ALL NEEDS IN REACH, PATIENT IN POSITION OF COMFORT, BED LOWERED AND LOCKED, RAILS UPX3 FOR SAFETY AND WILL ROUND Q2H OR LESS PER NEEDS. BED ALARM ON.
[2016-12-31 07:46] LABS: BASOPHILS % (AUTO) 0.5 % (0.0-2.0); EOSINOPHILS # (AUTO) 0.3 /CMM (0.0-0.7); EOSINOPHILS % (AUTO) 5.3 % (0.0-6.0); HEMATOCRIT 40 % (39-51); LYMPHOCYTES # (AUTO) 1.6 /CMM (0.8-4.8); LYMPHOCYTES % (AUTO) 30.3 % (20.0-44.0); MEAN CORPUSCULAR HEMOGLOBIN 30 PG (26.0-33.0); MEAN CORPUSCULAR HGB CONC 33 g/dl (31.0-36.0); MEAN CORPUSCULAR VOLUME 92 fL (80-96); MONOCYTES # (AUTO) 0.4 /CMM (0.1-1.30); MONOCYTES % (AUTO) 7.9 % (2.0-12.0); PLATELET COUNT (AUTO) 185 /CMM (150-450); RDW COEFFICIENT OF VARIATION 14.2 (11.5-15.0); RED BLOOD CELL COUNT(AUTO) 4.31 MIL/uL (4.5-6.0); WHITE BLOOD COUNT (AUTO) 5.4 K/uL (4.3-11.0)
[2016-12-31 08:00] VITALS: BP 131/77
[2016-12-31 08:00] LABS: CALCIUM, SERUM 9.1 mg/dL (8.5-10.1); CARBON DIOXIDE 27 mmol/L (21-32); CHLORIDE 105 mmol/L (98-107); CREATININE 1.1 mg/dL (0.6-1.3); GLUCOSE 286 mg/dL (74-106); PHOSPHORUS 3.4 mg/dL (2.5-4.9); POTASSIUM 4.2 mmol/L (3.5-5.1); SODIUM SERUM 141 mmol/L (136-145); UREA NITROGEN, BLOOD 26 mg/dL (7-18)
--- NOTE | 2016-12-31 08:15 | NUR ---
MS RN NOTE PATIENT IS TO HAVE CT ANGIO AROUND 1300. REEDUCATED PROGRAMMER AND PATIENT ON NPO STATUS.
[2016-12-31] MEDS ORDERED: IV NS 0.9% 250 ML IV ONE (08:22)
[2016-12-31] MEDS ORDERED: IOHEXOL-350 100 ML VIAL IV ONE (08:22)
[2016-12-31] MEDS ORDERED: CT SWABBABLE VALVE TRANS SET 1 EA INFUS.SET MC ONE (08:22)
[2016-12-31] MEDS: BLOOD SUGAR DIAGNOSTIC 1 EACH STRIP IN SCH ×4 (08:43→21:29)
[2016-12-31] MEDS: SENNOSIDES 8.6 MG TABLET PO SCH (08:44)
[2016-12-31] MEDS: MULTIVIT, IRON, MIN NO. 8, FA 1 TAB PO SCH (08:44)
[2016-12-31] MEDS: VENLAFAXINE 25 MG TABLET PO SCH (08:44)
[2016-12-31] MEDS: DOCUSATE SODIUM 100 MG CAPSULE PO SCH (08:44)
[2016-12-31] MEDS: ASPIRIN 325 MG TABLET PO SCH (08:45)
[2016-12-31] MEDS: DONEPEZIL 5 MG TABLET PO SCH (08:45)
[2016-12-31] MEDS: LISINOPRIL (20MG) 20 MG TABLET PO SCH (08:45)
[2016-12-31] MEDS: BRIMONIDINE TARTRATE OPHT SOLN 5 ML BOTTLE OP SCH ×2 (08:46→21:24)
[2016-12-31] MEDS ORDERED: RXENO XX (08:49)
[2016-12-31] MEDS: INSULIN DETEMIR 100 UNIT/ML CARTRIDGE SQ SCH ×2 (08:51→21:25)
[2016-12-31] MEDS: INSULIN REGULAR, HUMAN 100 UNIT/ML 3 ML VIAL SQ PRN ×2 (08:51→16:53)
[2016-12-31] MEDS: ENOXAPARIN SODIUM 60 MG/0.6 ML DISP.SYRIN SQ SCH ×2 (08:51→21:32)
[2016-12-31] MEDS: AMANTADINE SUSP 50 MG/5 ML UDC PO SCH ×2 (09:10→18:33)
[2016-12-31 11:09] LABS: *CARD ANTI-CARDIOLIPIN AB IgG <9 GPL U/mL (0-14); *CARD ANTI-CARDIOLIPIN AB IgM <9 MPL U/mL (0-12)
--- NOTE | 2016-12-31 13:31 | NUR ---
MS RN NOTES PATIENT TAKEN DOWN TO CT IN STABLE CONDITION
--- NOTE | 2016-12-31 14:30 | NUR ---
MS RN NOTES SPOKE TO DR TOBIAS AND SHE IS AWARE CTA RESULTS ARE BACK. SHE WILL F/U WITH REC'S
--- NOTE | 2016-12-31 15:51 | NUR ---
MS RN NOTES SPOKE WITH DR TOBIAS SHE IS ORDERING THORACENTESIS. NOTIFIED DR CASTILLO AND PER DR CASTILLO HOLD DC FOR TODAY
[2016-12-31 16:00] VITALS: BP 153/90
[2016-12-31 16:16] LABS: *ANTITHROMBIN III AG 102 % (72-124); *PTT-LA 39.1 sec (0.0-51.9); *THROMBIN TIME 17.3 sec (0.0-23.0); *dPT CONFIRM RATIO 0.97 Ratio (0.00-1.40); *dRVVT 49.3 sec (0.0-47.0); FACTOR VIII ACTIVITY 153 % (57-163); PROTEIN C ACTIVITY 130 % (73-180); PROTEIN S ACTIVITY 98 % (63-140)
--- NOTE | 2016-12-31 16:30 | NUR ---
MS RN NOTES CALLED PHARMACY SPOKE WITH OBDULIA TO REQUEST MORE SYMMETRYL WE ARE OUT.
--- NOTE | 2016-12-31 17:21 | NUR ---
MS RN NOTES CONFIRMED WITH DR TOBIAS TO ONLY HOLD AM DOSE OF LOVENOX
--- NOTE | 2016-12-31 18:10 | NUR ---
MS RN NOTES SPOKE WITH [facility]; WE HAVE NOT RECEIVED PATIENT SYMMETREL FOR 1700 DOSE. [facility] STATED THEY WILL SEND
--- NOTE | 2016-12-31 18:51 | NUR ---
MS RN CLOSING ALL DUE MEDS GIVEN AND ALL NEEDS MET. PATIENT STABLE NO COMPLICATIONS. ALL NEEDS IN REACH, BED LOWERED AND LOCKED, RAILS UPX3 FOR SAFETY AND WILL ENDORSE CARE TO RN FOR LEIGH
--- NOTE | 2016-12-31 19:05 | NUR ---
RN OPENING NOTES RECEIVED REPORT FROM AM RN. PATIENT A/A/O X2, ABLE TO MAKE SOME NEEDS KNOWN. BREATHING EVEN & UNLABORED, ON ROOM AIR. DENIES SOB OR DIFFICULTY BREATHING. PULSES PRESENT. LEFT FOREARM IV #22 INTACT W/ DRESSING CDI, ON SALINE LOCK. DENIES ANY PAIN OR DISCOMFORT @ THIS TIME. SAFETY MEASURES IN PLACE W/ SIDE RAILS UP, BED LOCKED IN LOWEST POSITION, CALL LIGHT WITHIN REACH. WILL CONTINUE TO MONITOR.
[2016-12-31 20:00] VITALS: BP 143/73
[2016-12-31] MEDS: ATORVASTATIN 10 MG TABLET PO SCH (21:29)
[2017-01-01 04:00] VITALS: BP_SYST 140; BP_SYST 143; BP_DIAS 80; BP_DIAS 82
[2017-01-01 06:11] LABS: *INTERPRETATION Comment: (.)
--- NOTE | 2017-01-01 07:05 | NUR ---
RN OPENING NOTE REC'VD REPORT FROM NOC RN, "SHANELL". PT A&OX2 AWAKE PLEASANT. NO SOB. RA 98%. +2 PULSES. NORMAL HEART RATE. ABD SOFT. INC BRIEF. LEFT PLEURAL EFFUSION PLAN FOR ULTRASOUND GUIDED THORACENTESIS TELEPHONE CONSENT DONE YESTERDAY W/ DTR MIHIR.. +DVT LLE. ORDER TO HOLD LOVENOX FOR THORACENTESIS. NO SKIN BREAKDOWN. CALL LIGHT IN REACH. BED IN LOW LOCKED POSITION. SIDE RAILS UP X 3. WILL CONT TO MONITOR.
[2017-01-01 08:00] VITALS: BP 146/83
[2017-01-01] MEDS: BLOOD SUGAR DIAGNOSTIC 1 EACH STRIP IN SCH ×3 (08:19→16:56)
[2017-01-01] MEDS: INSULIN DETEMIR 100 UNIT/ML CARTRIDGE SQ SCH (08:20)
[2017-01-01] MEDS: INSULIN REGULAR, HUMAN 100 UNIT/ML 3 ML VIAL SQ PRN ×3 (08:21→17:01)
[2017-01-01] MEDS: DONEPEZIL 5 MG TABLET PO SCH (08:23)
[2017-01-01] MEDS: DOCUSATE SODIUM 100 MG CAPSULE PO SCH (08:24)
[2017-01-01] MEDS: ASPIRIN 325 MG TABLET PO SCH (08:24)
[2017-01-01] MEDS: LISINOPRIL (20MG) 20 MG TABLET PO SCH (08:24)
[2017-01-01] MEDS: MULTIVIT, IRON, MIN NO. 8, FA 1 TAB PO SCH (08:24)
[2017-01-01] MEDS: SENNOSIDES 8.6 MG TABLET PO SCH (08:24)
[2017-01-01] MEDS: VENLAFAXINE 25 MG TABLET PO SCH (08:24)
[2017-01-01] MEDS: ENOXAPARIN SODIUM 60 MG/0.6 ML DISP.SYRIN SQ SCH (08:31)
[2017-01-01] MEDS: AMANTADINE SUSP 50 MG/5 ML UDC PO SCH ×2 (08:31→16:56)
[2017-01-01] MEDS: BRIMONIDINE TARTRATE OPHT SOLN 5 ML BOTTLE OP SCH (09:00)
--- NOTE | 2017-01-01 11:54 | NUR ---
RN NOTE THORACIC ULTRASOUND "BORDERLINE" PER TECH WHO WILL REPORT TO MD FOR POSSIBLE THORACENTESIS. RA NON LABORED RESP. HOB ELEVATED. PT RESTING COMFORTABLY. CALL LIGHT IN REACH. SIDE RAILS UP X 2. WILL CONT TO MONITOR CLOSELY.
[2017-01-01 12:00] VITALS: BP 146/83
--- NOTE | 2017-01-01 12:35 | NUR ---
RN THORACENTESIS DR. BURR PULLED OFF 800ML SEROSANG FLUID FROM LEFT LUNG. PT TOLERATED PROCEDURE WELL. STAT CXR FOR F/U AND FLUID SENT TO LAB FOR CYTOLOGY. H/O LUNG CA AND LOBECTOMY.
--- NOTE | 2017-01-01 13:40 | NUR ---
RN NOTE NOTIFIED DTR MIHIR OF TRANSFER TO TAKE PLACE AT 17:00HRS.
--- NOTE | 2017-01-01 14:11 | NUR ---
RN NOTE REPORT CALLED TO JOSE E MAI".
[2017-01-01 16:00] VITALS: BP 146/83
--- NOTE | 2017-01-01 18:14 | NUR ---
RN CLOSING NOTE REPORT GIVEN TO EMT FOR AMBULANCE TRANSPORT TO [facility].
[2017-01-04 17:09] LABS: *FACTOR II, DNA ANALYSIS Negative (.)
== END 2017-01-01 18:28 | DRG 299 ==
LOC: ER 20:22 → TELE1 22:24 → MEDSG1 12-28 11:16
PROVIDERS: ADMIT Nurse Practitioner Acute Care; ATTEND Nurse Practitioner Acute Care
PROC: 0W9B3ZZ Drainage of Left Pleural Cavity, Percutaneous Approach (ICD-10-PCS; principal; 2017-01-01)
DX: I82.412 Acute embolism and thrombosis of left femoral vein (principal); I26.99 Other pulmonary embolism without acute cor pulmonale; J90 Pleural effusion, not elsewhere classified; E44.1 Mild protein-calorie malnutrition; I69.354 Hemiplegia and hemiparesis following cerebral infarction affecting left non-dominant side; J98.11 Atelectasis; I82.432 Acute embolism and thrombosis of left popliteal vein; E11.22 Type 2 diabetes mellitus with diabetic chronic kidney disease; F32.9 Major depressive disorder, single episode, unspecified; I12.9 Hypertensive chronic kidney disease with stage 1 through stage 4 chronic kidney disease, or unspecified chronic kidney disease; N18.9 Chronic kidney disease, unspecified; H40.9 Unspecified glaucoma; Z85.118 Personal history of other malignant neoplasm of bronchus and lung; Z87.891 Personal history of nicotine dependence; Z90.2 Acquired absence of lung [part of]; D63.8 Anemia in other chronic diseases classified elsewhere; R53.1 Weakness; E88.09 Other disorders of plasma-protein metabolism, not elsewhere classified; Z68.33 Body mass index [BMI] 33.0-33.9, adult; N28.9 Disorder of kidney and ureter, unspecified; F09 Unspecified mental disorder due to known physiological condition; E66.01 Morbid (severe) obesity due to excess calories; F03.90 Unspecified dementia, unspecified severity, without behavioral disturbance, psychotic disturbance, mood disturbance, and anxiety
CPT/HCPCS: 36415; 36600; 71010-TC; 71250-TC; 76604-TC; 76942-TC; 78582; 80048-TC; 80061-TC; 80076-TC; 81000-TC; 81240; 81241; 82728-TC; 82746; 82784; 82803-TC; 82962-TC; 83090; 83540-TC; 83735-TC; 83880; 84100-TC; 84153-TC; 84154-TC; 84155; 84165; 84443-TC; 84484-TC; 85025-TC; 85240; 85300; 85301; 85303; 85378-TC; 85385-TC; 85610-TC; 85613; 85670; 85705; 85730-TC; 85732; 86147; 86334; 87040-TC; 87070-TC; 87081-TC; 87086-TC; 88305-TC; 88312-TC; 89051-TC; 92611-TC; 93307-TC; 93970-TC; A4606; A9540; A9567; J0456; J1644; J1650; J1815; J2543; J7050; J7060; Q9967; Z7610